=== PATIENT | female | born 1995 | race Hispanic/Latino ===

== ENCOUNTER 2017-08-01 09:33 | Outpatient (CLI) | payer OTHER ==
--- NOTE | 2017-08-01 12:00 | ULT ---
EXAM: OB ULTRASOUND: DATE: 08/01/17. FINDINGS: Multiple longitudinal and transverse images of an intrauterine are obtained using a multih ertz curvilinear transducer. Real-time, color flow, and spectral waveform Doppler analysis was used to evaluate the fetus. Images demonstrate a viable intrauterine with a fetus in a transverse presentation. Place nta is posterior and grade 0. BIOMETRICS: Biparietal diameter 42 mm, 18 weeks 6 days Head circumference 152 mm, 18 weeks 1 day Abdominal circumference 132 mm, 18 weeks 5 days Femur length 25 mm, 17 weeks 5 days Composite age=18 weeks 1 day with an estimated date of delivery of 01/01/18. Estimated weight is 230 gm. anatomic survey demonstrates thoracic spine, lumbar spine, and cervical spine to be unremarkab le. The bladder and kidneys are unremarkable. A 3-vessel cord is seen. Stomach is unremarkable. Lips and nose, posterior fossa, and 4-chamber heart are not visible. IMPRESSION: Incomplete anatomic survey. Otherwise, unremarkable OB ultrasound. POS: [facility]
== END 2017-08-01 09:34 | disposition home or self-care (01) ==
LOC: ULT 09:33
PROVIDERS: ATTEND Family Medicine
DX: Z34.92 Encounter for supervision of normal pregnancy, unspecified, second trimester (principal); Z3A.18 18 weeks gestation of pregnancy
CPT/HCPCS: 76805

== ENCOUNTER 2018-01-01 08:39 | Inpatient (IN) | payer OTHER ==
[2018-01-01] MEDS: Lactated Ringer's 1,000 ML IV SCH ×3 (09:25→23:18)
[2018-01-01] MEDS ORDERED: Magnesium Sulfate 20 gm/500 ml 20 GM/500 ML BAG ONE (09:43)
[2018-01-01] MEDS: Magnesium Sulfate 20 gm/500 ml 20 GM/500 ML BAG IVPB PRN ×2 (09:50→18:12)
[2018-01-01] MEDS: Labetalol HCl 100 MG/20 ML VIAL ONE ×2 (09:52→10:06)
[2018-01-01 10:30] VITALS: BMI 47.4
[2018-01-01 10:43] LABS: Bilirubin Negative (Negative); Blood, Urine Negative (Negative); Clarity CLEAR (Clear); Glucose, Urine (Dipstick) Negative (Negative); Leukocyte Negative (Negative); Nitrite Negative (Negative); Protein, Urine (Dipstick) Negative (Neg-Trace); Specific Gravity, Urine 1.007 (1.002-1.036); Urobilinogen 0.2 mg/dL (0.2-1.0); pH, Urine 7.5 (5.0-9.0)
[2018-01-01 10:45] LABS: Bacteria/HPF None Seen HPF (None Seen); Hyaline Casts/LPF 0-3 HYALINE CAST LPF (0-3 Hyaline); Pathc Cast-AUWi Flag 0.27 (0-2.49); RBC/HPF 0-3 HPF (0-3); Squamous Epithelial 0-3 HPF (0-3); WBC/HPF 0-3 HPF (0-3)
[2018-01-01] MEDS ORDERED: Meperidine HCl/PF 25 MG/ML VIAL IM/IV PRN (10:50)
[2018-01-01] MEDS ORDERED: Promethazine HCl 25 MG/ML VIAL IM PRN ×2 (10:50→12:50)
[2018-01-01] MEDS ORDERED: Ondansetron HCl/PF 4 MG/2 ML Vial IVP PRN ×2 (10:50→12:50)
[2018-01-01] MEDS ORDERED: Acetaminophen 500 MG TAB PO PRN (10:50)
[2018-01-01] MEDS ORDERED: Calcium Gluc 4.6 MEQ/10 ML (100 MG/ML) IV PRN (10:51)
[2018-01-01 10:58] LABS: Hemoglobin 12.3 g/dL (12.0-16.0); Mean Corpuscular HGB CONC 33.7 g/dL (32.0-36.0); Mean Corpuscular Hemoglobin 28.3 pg (27.0-31.0); Mean Corpuscular Volume 84.1 fl (81.0-99.0); Mean Platelet Volume 9.2 fL (7.4-10.4); Platelet Count 268 thou/uL (130-400); RBC Distribution Width 15.5 % (11.5-14.5); Red Blood Cell (RBC) Count 4.35 mill/uL (4.20-5.40); White Blood Cell (WBC) Count 12.4 thou/uL (4.8-10.8)
[2018-01-01] MEDS ORDERED: Labetalol 100 MG/20 ML MDV SLOW IVP SCH (11:15)
[2018-01-01 11:22] LABS: ALT (SGPT) 21 U/L (8-55); AST (SGOT) 37 U/L (5-34); Albumin 3.3 g/dL (3.5-5.0); Alkaline Phosphatase 104 U/L (40-150); Anion Gap 13 mmol/L (10-20); BUN (Urea Nitrogen) 7 mg/dL (7.0-18.7); Bilirubin, Total 0.3 mg/dL (0.2-1.2); Calc. Creatinine Clearance 262 mL/min (70-130); Calcium 9.1 mg/dL (7.8-10.44); Carbon Dioxide 22 mmol/L (22-29); Chloride 108 mmol/L (98-107); Estimated GFR-MDRD Greater than 90; Globulin 3.2 g/dL (2.4-3.5); Glucose 67 mg/dL (70-105); Potassium 4.2 mmol/L (3.5-5.1); Protein, Total 6.5 g/dL (6.0-8.3); Sodium 139 mmol/L (136-145)
[2018-01-01 11:39] LABS: HBSAg Index 0.14 S/CO (0-0.99); HIV (1/2) Antibody/Antigen Non-Reactive (NonReactive); HIV 1/2 INDEX 0.18 S/CO (<1.00); Hep B Surf Ag Non-Reactive S/CO (NonReactive)
[2018-01-01] MEDS ORDERED: Penicillin G Potassium 5 MILL.UNITS VIAL ONE (11:54)
[2018-01-01] MEDS ORDERED: Penicillin G Potassium 5 MILL.UNITS in Sodium Chloride 0.9% 100 ML IVPB SCH (12:00)
[2018-01-01] MEDS ORDERED: LR 500 ML/Oxytocin 10 units 500 ML ONE (12:02)
[2018-01-01] MEDS ORDERED: Naloxone HCl 0.4 mg/ml Vial IVP PRN ×2 (12:50)
[2018-01-01] MEDS ORDERED: ePHEDrine/0.9% NaCl/PF SYRINGE 50 mg/10 ml SLOW IVP PRN (12:50)
[2018-01-01] MEDS ORDERED: Acetaminophen 325 MG TAB PO PRN (12:50)
[2018-01-01] MEDS ORDERED: Lactated Ringer's 500 ML IV PRN (12:50)
[2018-01-01] MEDS ORDERED: diphenhydrAMINE 50 MG/ML VIAL IVP PRN (12:50)
[2018-01-01] MEDS ORDERED: Eucerin (Mineral Oil/Petrolatum,White) 30 gm Jar TOP PRN (12:50)
[2018-01-01] MEDS ORDERED: Communication Order-Pharmacy FS SCH (13:00)
[2018-01-01] MEDS ORDERED: Fentanyl 4mcg/Marcaine 0.1% Cassette 100 ML EPIDURAL SCH (13:00)
[2018-01-01 13:10] LABS: Syphilis Antibody Nonreactive (Nonreactive); Syphilis Antibody Index 0.09 S/CO (<1.00 Non-Reactive)
[2018-01-01] MEDS ORDERED: LR 500 ML/Oxytocin 10 units 500 ML IVPB SCH (13:15)
[2018-01-01] MEDS: PENICILLIN IVPB SCH ×2 (16:10→20:06)
[2018-01-01] MEDS: SODIUM CHLORIDE IVPB SCH ×2 (16:10→20:06)
[2018-01-01] MEDS ORDERED: Penicillin G Potassium 2.5 MILL.UNITS in Sodium Chloride 0.9% 50 ML IVPB SCH (17:00)
[2018-01-01] MEDS ORDERED: Hydrocerin (Eucerin) Cream 120 gm Jar ONE (18:58)
[2018-01-01] MEDS: Bupivacaine 0.5% 20 ML, Fentanyl 400 MCG in Sodium Chloride 0.9% 72 ML EPIDURAL SCH (19:20)
[2018-01-01] MEDS ORDERED: Penicillin G 2.5 MILL.units 50 ML ONE ×2 (20:05→23:49)
[2018-01-02] MEDS: Bupivacaine 0.5% 20 ML, Fentanyl 400 MCG in Sodium Chloride 0.9% 72 ML EPIDURAL SCH ×2 (00:25→06:30)
[2018-01-02] MEDS ORDERED: Penicillin G 2.5 MILL.units 50 ML ONE (03:56)
[2018-01-02] MEDS: SODIUM CHLORIDE IVPB SCH (04:29)
[2018-01-02] MEDS: PENICILLIN IVPB SCH (04:29)
[2018-01-02] MEDS: Magnesium Sulfate 20 gm/500 ml 20 GM/500 ML BAG IVPB PRN ×2 (04:42→15:31)
[2018-01-02] MEDS ORDERED: Bicitra 30 ML UDCUP ONE (07:08)
[2018-01-02] MEDS ORDERED: CEFAZOLIN/Water 2 GM/20 ML SYRINGE ONE (07:08)
[2018-01-02] MEDS ORDERED: Morphine PF 1 MG/ML SYR ONE (07:15)
[2018-01-02] MEDS ORDERED: Oxytocin 10 UNITS/ML VIAL ONE ×4 (07:15→08:02)
[2018-01-02] MEDS ORDERED: Ondansetron HCl/PF 4 MG/2 ML Vial ONE (07:16)
[2018-01-02] MEDS ORDERED: Dexamethasone 4 mg/ml Vial ONE (07:16)
[2018-01-02] MEDS ORDERED: Ketorolac Tromethamine 30 MG/ML VIAL ONE (07:16)
[2018-01-02] MEDS ORDERED: CEFAZOLIN/Water 2 GM/20 ML SYRINGE SLOW IVP SCH (07:30)
[2018-01-02] MEDS ORDERED: Bicitra 30 ML UDCUP PO SCH (07:30)
[2018-01-02] MEDS ORDERED: Naloxone HCl 0.4 mg/ml Vial IV PRN (08:01)
[2018-01-02] MEDS ORDERED: Eucerin (Mineral Oil/Petrolatum,White) 30 gm Jar TOP PRN (08:01)
[2018-01-02] MEDS ORDERED: diphenhydrAMINE 50 MG/ML VIAL IVP PRN (08:01)
[2018-01-02] MEDS ORDERED: Promethazine HCl 25 MG SUPP PR PRN (08:01)
[2018-01-02] MEDS ORDERED: Promethazine HCl 25 MG/ML VIAL IM PRN (08:01)
[2018-01-02] MEDS ORDERED: Ondansetron HCl/PF 4 MG/2 ML Vial IVP PRN ×3 (08:01→11:38)
[2018-01-02] MEDS ORDERED: Naloxone HCl 0.4 mg/ml Vial IVP PRN ×2 (08:01)
[2018-01-02] MEDS ORDERED: Fentanyl 100 MCG/2 ML VIAL ONE ×2 (08:05→10:38)
[2018-01-02] MEDS ORDERED: Communication Order-Pharmacy FS SCH (08:15)
--- NOTE | 2018-01-02 09:40 | OP ---
DATE OF SURGERY: 01/02/2018 PREOPERATIVE DIAGNOSES: Term intrauterine with prolonged rupture of membranes 24 hours wit h preeclampsia and non-reassuring heart tones. POSTOPERATIVE DIAGNOSES: Term intrauterine with prolonged rupture of membranes 24 hours wi th preeclampsia and non-reassuring heart tones, status post delivery. PROCEDURES PERFORMED: 1. Primary low transverse section. 2. Drainage of a right paratubal cyst. SURGEON: Soraida Fitzpatrick M.D. OPERATIONS GENERAL AGENT: Dat Phillips M.D. ANESTHESIA: Epidural. COMPLICATIONS: No other complications. PROCEDURE IN DETAIL: After adequate epidural anesthetic, patient was placed in supine position. The abdomen was prepped and draped in the usual sterile technique. A Pfannenstiel incision was made in the inferior aspect of the abdomen. Subcutaneous tissue opened with sharp dissection. Fascia opened with sharp dissection. Peritoneum opened with sharp and blunt dissection. It was noted that the ab domen was filled with a gravid uterus. An Jeevan O retractor was placed without difficulty and a low transverse incision was made on the uterus. Clear fluid was encountered. A viable male was delivered from vertex presentation without difficulty. breathed and cried spontaneously after approximately 30 seconds. The cord was clamped and cut and handed to care of neonatology [facility]. Cord blood was obtained. The placenta was delivered manually, appeared intact. Ring forceps wer e placed over the hysterotomy edges and the hysterotomy was then closed in continuous fashion using 0 Monocryl. A second layer was placed for imbrication. An additional [id number] was placed with #1 Monocryl for hemostasis. There was adequate hemostasis, noted a large right paratubal cyst which was opened and drained without difficulty. Approximately 150 mL of clear fluid was obtained. The e dges were cauterized for hemostasis. The paratubal cyst resolved, but not completely removed. Uteru s was replaced back into the abdominal cavity. Again noted, hemostasis was adequate and an Jeevan O retractor was removed. The peritoneal edges were then closed in continuous fashion using 2-0 plain a nd the fascia was then closed in continuous fashion using 0 Vicryl. Sponge and instrument counts wer e correct, wound was irrigated. A few bleeders on the subcutaneous tissue were cauterized and the hill bcu was then closed in continuous fashion using 2-0 plain. The skin was then closed using pk an d a wound VAC was placed over the incision. The patient tolerated the procedure well to go to [facility] f or continued magnesium secondary to preeclampsia. The baby to go to level [facility] nursery in [facility]. Noted the baby is a viable male infant, weight 8 pounds 4 ounces, Apgars 8 at 1 minute, 9 at 5 mi nutes. ESTIMATED BLOOD LOSS: 600 mL
[2018-01-02] MEDS ORDERED: Meperidine HCl/PF 25 MG/ML VIAL ONE (10:05)
[2018-01-02] MEDS ORDERED: Promethazine HCl 25 MG/ML VIAL ONE (10:06)
[2018-01-02] MEDS ORDERED: Bisacodyl 10 MG SUPP PR PRN (11:38)
[2018-01-02] MEDS ORDERED: diphenhydrAMINE 25 MG CAP PO PRN (11:38)
[2018-01-02] MEDS ORDERED: Simethicone Chewable 80 MG TAB PO PRN (11:38)
[2018-01-02] MEDS ORDERED: Adacel (T-DAP) 0.5 ML VIAL IM ONE (11:38)
[2018-01-02] MEDS ORDERED: Lanolin Ointment 7 GM TUBE TOP PRN (11:38)
[2018-01-02] MEDS ORDERED: Naloxone HCl 0.4 mg/ml Vial ONE (13:13)
[2018-01-02] MEDS ORDERED: Morphine 10 MG/ML VIAL ONE (13:16)
[2018-01-02] MEDS ORDERED: Acetaminophen 1,000 MG in Premix Bag 1 BAG IVPB SCH (14:00)
[2018-01-02] MEDS ORDERED: Morphine 2 MG/ML SYRINGE SLOW IVP SCH (14:00)
[2018-01-02] MEDS ORDERED: Morphine 2 MG/ML SYRINGE SLOW IVP PRN (14:30)
[2018-01-02] MEDS: Prenatal Vitamin 1 TAB PO SCH (15:19)
[2018-01-02] MEDS: Ferrous Sulfate 325 MG TAB PO SCH ×2 (15:21→23:20)
[2018-01-02] MEDS: Docusate Calcium (SURFAK) 240 MG CAP PO SCH ×2 (15:21→23:20)
[2018-01-02] MEDS: Ketorolac Tromethamine 30 MG/ML VIAL IVP PRN (15:28)
[2018-01-02] MEDS: Lactated Ringer's 1,000 ML IV SCH (17:01)
[2018-01-02] MEDS ORDERED: Bupivacaine 0.25% HCL 30 ML VIAL ONE (18:35)
[2018-01-02] MEDS ORDERED: Lidocaine 2% MPF 10 ML AMP (For Epidural Use) ONE (18:35)
[2018-01-02 18:53] LABS: Mean Corpuscular HGB CONC 33.6 g/dL (32.0-36.0); Mean Corpuscular Hemoglobin 28.5 pg (27.0-31.0); Mean Corpuscular Volume 84.8 fl (81.0-99.0); Mean Platelet Volume 8.7 fL (7.4-10.4); Platelet Count 262 thou/uL (130-400); RBC Distribution Width 15.5 % (11.5-14.5); Red Blood Cell (RBC) Count 3.15 mill/uL (4.20-5.40); White Blood Cell (WBC) Count 24.8 thou/uL (4.8-10.8)
[2018-01-02] MEDS ORDERED: Acetaminophen 1,000 MG in Premix Bag 1 BAG IVPB PRN (20:00)
[2018-01-02] MEDS ORDERED: Acetaminophen/Codeine 30-300mg Tablet PO PRN (20:15)
--- NOTE | 2018-01-02 20:25 | PRG ---
DATE OF ENCOUNTER: 01/02/2018 SUBJECTIVE: Patient is a 23-year-old female of Dr. Soraida Fitzpatrick, who is postop day 0 for a primary C- section secondary to nonreassuring heart tones and preeclampsia. Patient is currently on postp artum magnesium. I was called to the room after the patient had spontaneous blood pressures in the 8 0s/40s and then 93/46 and then 107/51 all over a 6-minute. Her most recent blood pressure is 136/54, heart rate has maintained in the 80s. Patient reports that she felt a little diaphoretic, a little sweaty, felt tired, but otherwise is doing fine. She denies any chest pain, shortness of breath, maame sea, vomiting, or fever. She has good peripheral vascularity with inspection of her conjunctivae. H er fundus is firm. Her urine output has been steady at 100 mL an hour and she has no significant vag inal bleeding. With her spontaneous resolution of her blood pressures, reassurance was given to the patient. I have also told her that we will be monitoring her blood pressures for any signs of recurr ence or worsening signs of concern. Her doctor, Dr. Soraida Fitzpatrick, will be notified of this encounter by the patient's nurse.
[2018-01-03] MEDS: Magnesium Sulfate 20 gm/500 ml 20 GM/500 ML BAG IVPB PRN (03:02)
[2018-01-03 06:04] LABS: Hemoglobin 7.1 g/dL (12.0-16.0); Mean Corpuscular HGB CONC 32.3 g/dL (32.0-36.0); Mean Corpuscular Hemoglobin 27.8 pg (27.0-31.0); Mean Corpuscular Volume 86.2 fl (81.0-99.0); Mean Platelet Volume 8.8 fL (7.4-10.4); Platelet Count 222 thou/uL (130-400); RBC Distribution Width 15.7 % (11.5-14.5); Red Blood Cell (RBC) Count 2.57 mill/uL (4.20-5.40); White Blood Cell (WBC) Count 16.2 thou/uL (4.8-10.8)
[2018-01-03] MEDS: Lactated Ringer's 1,000 ML IV SCH (06:33)
[2018-01-03] MEDS: Ketorolac Tromethamine 30 MG/ML VIAL IVP PRN (06:38)
[2018-01-03] MEDS: Dextrose 5%-Lactated Ringers 1,000 ML IV SCH (11:02)
[2018-01-03] MEDS: Docusate Calcium (SURFAK) 240 MG CAP PO SCH (12:26)
[2018-01-03] MEDS: Ferrous Sulfate 325 MG TAB PO SCH (12:27)
[2018-01-03] MEDS: Prenatal Vitamin 1 TAB PO SCH (12:27)
[2018-01-03 12:35] LABS: Hemoglobin 7.8 g/dL (12.0-16.0); Mean Corpuscular HGB CONC 33.7 g/dL (32.0-36.0); Mean Corpuscular Hemoglobin 28.5 pg (27.0-31.0); Mean Corpuscular Volume 84.7 fl (81.0-99.0); Mean Platelet Volume 8.5 fL (7.4-10.4); Platelet Count 258 thou/uL (130-400); RBC Distribution Width 15.6 % (11.5-14.5); Red Blood Cell (RBC) Count 2.73 mill/uL (4.20-5.40); White Blood Cell (WBC) Count 14.4 thou/uL (4.8-10.8)
[2018-01-03] MEDS: HYDROcodone/Acetaminophen 5/325 mg Tablet PO PRN (12:52)
[2018-01-03 18:41] LABS: Mean Corpuscular HGB CONC 33.6 g/dL (32.0-36.0); Mean Corpuscular Hemoglobin 29.1 pg (27.0-31.0); Mean Corpuscular Volume 86.7 fl (81.0-99.0); Mean Platelet Volume 8.1 fL (7.4-10.4); Platelet Count 270 thou/uL (130-400); RBC Distribution Width 15.3 % (11.5-14.5)
[2018-01-04 00:18] LABS: Hemoglobin 7.8 g/dL (12.0-16.0); Mean Corpuscular HGB CONC 33.3 g/dL (32.0-36.0); Mean Corpuscular Hemoglobin 28.8 pg (27.0-31.0); Mean Corpuscular Volume 86.2 fl (81.0-99.0); Mean Platelet Volume 7.7 fL (7.4-10.4); Platelet Count 243 thou/uL (130-400); RBC Distribution Width 15.5 % (11.5-14.5); Red Blood Cell (RBC) Count 2.71 mill/uL (4.20-5.40)
[2018-01-04] MEDS: Dextrose 5%-Lactated Ringers 1,000 ML IV SCH ×2 (00:30→12:54)
[2018-01-04] MEDS: Docusate Calcium (SURFAK) 240 MG CAP PO SCH ×3 (00:30→20:00)
[2018-01-04] MEDS: Ferrous Sulfate 325 MG TAB PO SCH ×3 (00:30→20:00)
[2018-01-04 07:27] LABS: Hemoglobin 7.6 g/dL (12.0-16.0); Mean Corpuscular HGB CONC 33.5 g/dL (32.0-36.0); Mean Corpuscular Hemoglobin 28.9 pg (27.0-31.0); Mean Corpuscular Volume 86.3 fl (81.0-99.0); Mean Platelet Volume 8.5 fL (7.4-10.4); Platelet Count 252 thou/uL (130-400); RBC Distribution Width 15.4 % (11.5-14.5); Red Blood Cell (RBC) Count 2.64 mill/uL (4.20-5.40); White Blood Cell (WBC) Count 11.5 thou/uL (4.8-10.8)
[2018-01-04 12:14] LABS: Hemoglobin 7.8 g/dL (12.0-16.0); Mean Corpuscular HGB CONC 33.6 g/dL (32.0-36.0); Mean Corpuscular Hemoglobin 29.2 pg (27.0-31.0); Mean Corpuscular Volume 86.8 fl (81.0-99.0); Mean Platelet Volume 8.1 fL (7.4-10.4); Platelet Count 261 thou/uL (130-400); RBC Distribution Width 15.4 % (11.5-14.5); Red Blood Cell (RBC) Count 2.67 mill/uL (4.20-5.40); White Blood Cell (WBC) Count 11.8 thou/uL (4.8-10.8)
[2018-01-04] MEDS: Prenatal Vitamin 1 TAB PO SCH (12:59)
[2018-01-04] MEDS: HYDROcodone/Acetaminophen 5/325 mg Tablet PO PRN (13:00)
[2018-01-04] MEDS ORDERED: Acetaminophen 500 MG TAB PO PRN (14:22)
[2018-01-04] MEDS ORDERED: Acetaminophen 325 MG TAB PO PRN (17:27)
[2018-01-04] MEDS ORDERED: Simethicone Chewable 80 MG TAB PO PRN (17:27)
[2018-01-04] MEDS ORDERED: HYDROcodone/Acetaminophen 5/325 mg Tablet PO PRN (17:27)
[2018-01-04] MEDS ORDERED: Bisacodyl 10 MG SUPP PR PRN (17:27)
[2018-01-04] MEDS ORDERED: Lanolin Ointment 7 GM TUBE TOP PRN (17:27)
[2018-01-04] MEDS: Ibuprofen 800 MG TAB PO SCH (20:00)
[2018-01-04] MEDS ORDERED: Sodium Chloride 0.9% 10 ML ONE (23:42)
[2018-01-05] MEDS: Ibuprofen 800 MG TAB PO SCH ×2 (04:44→14:21)
[2018-01-05 05:10] VITALS: BP 136/67
[2018-01-05] MEDS: Dextrose 5%-Lactated Ringers 1,000 ML IV SCH (07:27)
[2018-01-05] MEDS: SODIUM CHLORIDE IVPB SCH (07:29)
[2018-01-05] MEDS: PENICILLIN IVPB SCH (07:29)
[2018-01-05] MEDS ORDERED: Prenatal Vitamin 1 TAB PO SCH (09:00)
[2018-01-05] MEDS: Docusate Calcium (SURFAK) 240 MG CAP PO SCH (09:34)
[2018-01-05] MEDS: Ferrous Sulfate 325 MG TAB PO SCH (09:35)
[2018-01-05 10:44] VITALS: TEMP 98.4
[2018-01-05] MEDS ORDERED: Measles/Mumps/Rubella 10 MCG/0.5 ML VIAL SC ONE (12:15)
== END 2018-01-05 15:40 | disposition home or self-care (01) | DRG 766 ==
LOC: L&D/OP 08:39 → OBSVTOIN 11:56 → L&D 11:56 → 3SW 01-03 09:44 → L&D 01-03 11:09 → 3SW 01-04 17:29
PROVIDERS: ADMIT Family Medicine; ATTEND Family Medicine
PROC: 10D00Z1 Extraction of Products of Conception, Low, Open Approach (ICD-10-PCS; principal; 2018-01-02)
PROC: 0U950ZZ Drainage of Right Fallopian Tube, Open Approach (ICD-10-PCS; 2018-01-02)
PROC: 10H07YZ Insertion of Other Device into Products of Conception, Via Natural or Artificial Opening (ICD-10-PCS; 2018-01-02)
PROC: 30233N1 Transfusion of Nonautologous Red Blood Cells into Peripheral Vein, Percutaneous Approach (ICD-10-PCS; 2018-01-03)
DX: O14.94 Unspecified pre-eclampsia, complicating childbirth (principal); N83.8 Other noninflammatory disorders of ovary, fallopian tube and broad ligament; O42.12 Full-term premature rupture of membranes, onset of labor more than 24 hours following rupture; Z3A.39 39 weeks gestation of pregnancy; Z37.0 Single live birth; O76 Abnormality in fetal heart rate and rhythm complicating labor and delivery; O34.83 Maternal care for other abnormalities of pelvic organs, third trimester; O99.824 Streptococcus B carrier state complicating childbirth; O62.1 Secondary uterine inertia
CPT/HCPCS: 36415; 36430; 80053; 81001; 83735; 85027; 86780; 86850; 86900; 86901; 87340; 87389; 90707; 90715; A4216; J0131; J1100; J1885; J2001; J2175; J2270; J2274; J2310; J2405; J2540; J2550; J2590; J3010; J3475; J3490; J7050; J7120; P9016; S0020

== ENCOUNTER 2019-08-03 20:45 | Emergency (ER) | payer OTHER, SELFPAY ==
[2019-08-03] MEDS ORDERED: HYDROcodone/Acetaminophen 10/325 mg Tablet ONE (21:11)
--- NOTE | 2019-08-03 21:30 | RAD ---
Radiograph right wrist 3 views: DATE: 08/03/2019 Time: 8:43 PM HISTORY: 24-year-old female with traumatic right wrist deformity and pain. COMPARISON: None available FINDINGS: No displaced fracture is identified. However, if there is snuffbox tenderness following trauma that s uggests an occult scaphoid fracture, then the general recommendation is immobilization and follow-up imaging in 5-10 days. There is soft tissue edema, especially at the dorsum of the wrist. Th ere is ulna minus. There are oblique linear lucencies at the ulnar side of the distal radial metaphysis and epiphysis, and at the radiocarpal articular surface. It is uncertain whether these rep resent nondisplaced fracture trabecular lines or nutrient channels. IMPRESSION: 1. No displaced fracture identified. 2. Linear lucencies of distal radius, including at radiocarpal articular surface. Uncertain whether t hese represent trabecular lines, nutrient vessel channels, or nondisplaced fracture. Noncontrast CT of the wrist may be useful. 3. Soft tissue edema. 4. Ulnar negative variance.
== END 2019-08-03 21:40 | disposition home or self-care (01) ==
LOC: ERS 20:45
DX: S52.501A Unspecified fracture of the lower end of right radius, initial encounter for closed fracture (principal); W18.30XA Fall on same level, unspecified, initial encounter
CPT/HCPCS: 29125

== ENCOUNTER 2020-10-13 21:33 | Emergency (ER) | payer SELFPAY ==
[2020-10-13 22:45] LABS: #Basophils 0.1 thou/uL (0.0-0.2); #Eosinphils 0.1 thou/uL (0.0-0.7); #Lymphocytes 3.4 thou/uL (1.20-3.40); #Monocytes 1.4 thou/uL (0.11-0.59); #Neutrophils 12.1 thou/uL (1.40-6.50); %Basophils 0.5 % (0.0-1.0); %Eosinophils 0.7 % (0.0-10.0); %Lymphocytes 19.9 % (21.0-51.0); %Monocytes 8.4 % (0.0-10.0); %Neutrophils 70.5 % (42.0-75.0); Hemoglobin 14.6 g/dL (12.0-16.0); Mean Corpuscular HGB CONC 33.1 g/dL (32.0-36.0); Mean Corpuscular Hemoglobin 29.1 pg (27.0-31.0); Mean Platelet Volume 7.8 fL (7.4-10.4); Platelet Count 336 thou/uL (130-400); RBC Distribution Width 13.6 % (11.5-14.5); Red Blood Cell (RBC) Count 5.02 mill/uL (4.20-5.40); White Blood Cell (WBC) Count 17.2 thou/uL (4.8-10.8)
[2020-10-13 22:51] LABS: Bacteria/HPF None Seen HPF (None Seen); Bilirubin Negative (Negative); Blood, Urine Negative (Negative); Clarity Clear (Clear); Glucose, Urine (Dipstick) Normal (Negative); Ketone, Urine 60 mg/dL (Negative); Leukocyte Negative Leu/uL (Negative); Mucous/LPF 2+ LPF (<2+); Nitrite Negative (Negative); Protein, Urine (Dipstick) 50 mg/dL (Neg-Trace); RBC/HPF 0-3 HPF (0-3); Renal Epithelial 0-3 HPF (None Seen); Specific Gravity, Urine 1.034 (1.002-1.036); Squamous Epithelial 0-3 HPF (0-3); Urobilinogen 3 mg/dL (Less than 2); WBC/HPF 0-3 HPF (0-3)
[2020-10-13 22:56] LABS: Amphetamine Not Detected (NotDetected); Barbiturates Screen Not Detected (NotDetected); Benzodiazepine Screen Not Detected (NotDetected); Cocaine Metabolite Screen Not Detected (NotDetected); Medtox Control Line Valid? VALID (VALID); Medtox Reader # READER 4; Methadone Not Detected (NotDetected); Methamphetamine Not Detected (NotDetected); Opiate Screen Not Detected (NotDetected); Oxycodone Screen Not Detected (NotDetected); Phencyclidine (PCP) Not Detected (NotDetected); THC/Cannabinoid Screen Detected (NotDetected); Tricyclic Screen Not Detected (NotDetected)
[2020-10-13 23:06] LABS: Acetaminophen Less than 6.0 mcg/mL (10.0-30.0); Alcohol Less than 10 mg/dL (Less than 10); Salicylate Less than 8.0 mg/dL (15.0-30.0)
[2020-10-13 23:08] LABS: ALT (SGPT) 31 U/L (8-55); AST (SGOT) 44 U/L (5-34); Albumin 4.4 g/dL (3.5-5.0); Alkaline Phosphatase 56 U/L (40-110); Anion Gap 16 mmol/L (10-20); BUN (Urea Nitrogen) 11 mg/dL (7.0-18.7); Bilirubin, Total 0.7 mg/dL (0.2-1.2); Calc. Creatinine Clearance 0 mL/min (70-130); Calcium 9.2 mg/dL (7.8-10.44); Carbon Dioxide 22 mmol/L (22-29); Chloride 103 mmol/L (98-107); Globulin 3.5 g/dL (2.4-3.5); Glucose 105 mg/dL (70-105); Potassium 3.1 mmol/L (3.5-5.1); Protein, Total 7.9 g/dL (6.0-8.3); Sodium 138 mmol/L (136-145)
[2020-10-13 23:24] LABS: Thyroid Stimulating Hormone 1.2627 uIU/mL (0.35-4.94)
[2020-10-13 23:28] LABS: BHCG - Serum Negative (NEGATIVE); Pregs Control Background? CLEAR/WHITE (CLR/WHITE); Pregs Control Bar Appear? YES (CONTROL BAR)
[2020-10-14] MEDS ORDERED: Ziprasidone 20 MG VIAL ONE (01:53)
[2020-10-14] MEDS ORDERED: Lorazepam 2 MG/ML VIAL ONE ×2 (02:22→07:42)
[2020-10-14] MEDS ORDERED: diphenhydrAMINE 50 MG/ML VIAL ONE ×2 (02:57→07:42)
[2020-10-14] MEDS ORDERED: Potassium Chloride 20 MEQ TAB ONE ×2 (03:34)
== END 2020-10-14 10:29 ==
LOC: ERS 21:33
DX: F23 Brief psychotic disorder (principal)
CPT/HCPCS: 36415; 80053; 80306; 80307; 81003; 81015; 84443; 84703; 85025; 96372; 99285; J1200; J2060; J3486